=== PATIENT | male | born 1985 | race Caucasian/White ===

== ENCOUNTER 2024-07-12 10:25 | Day surgery (SDC) | payer OTHER, SELFPAY ==
[2024-07-12] VITALS (13 sets, daily range): BP systolic 111–137; BP diastolic 60–92; PULSE 78–98; RESP 16–18; TEMP 36.1–37.3; O2SAT 98–100; BMI 28.3
[2024-07-12] MEDS: 0.9% Normal Saline (1000mL) 1,000 ML 15 ML IV (10:40)
--- NOTE | 2024-07-12 10:51 | PRE.ANES_ITS ---
ASA Classification* ASA Classification ASA Classification: 2 Assessment & Plan Anesthesia* Anesthesia Assessment Anesthesia Assessment: Discussed sedation and/or anesthesia options, risks, benefits, and alternatives with patient/parents/legal guardian/POA. Questions invited. The patient/parents/legal guardian/POA seems to understand and agrees to proceed with anesthesia plan. Reviewed the physical assessment, medical history, allergy history and patient home medications list prior to surgery/procedure/anesthetic and documented any changes. Performed airway and anesthesia risk assessments. Anesthesia Type Anesthesia Type: General and Block Anesthesia Focused Assessment* Airway Assessment Mouth opens: >3 cm Mallampati Score: II Focused Labs Anesthesia Preop lab: CBC CHEMISTRY COAG Pre-Assessment Diagnosis/Proposed Procedure Planned Operative Procedure(s): (L) Arthroscopy, Knee ACL Anesthesia History Anesthesia History - umbrella repairer: Anesthesia History - umbrella repairer Hx Hospitalization No 07/02/24 15:34 Any Problems With Anesthesia No 07/02/24 15:34 Cholinesterase deficiency No 07/02/24 15:34 You/Your Family Experience No 07/02/24 15:34 fever (hyperthermia) with Relationship Recent Exposure to Contagious Disease Does patient have nerve No 07/02/24 15:34 stimulator Patient instructed to have device shut off --Does patient have Pacemaker or ICD? When Was Last Pacemaker Check QUESTION #4 FULL TEXT: You/Your Family Experience fever (hyperthermia) with Anesthesia Last Oral Intake Last Oral intake: Last Oral Intake NPO since Meds taken in AM with sips of water? Meds patient instructed to take am of surgery PONV PONV - umbrella repairer: PONV - umbrella repairer Female No 07/02/24 15:34 HX of Motion Sickness No 07/02/24 15:34 HX of N/V After Surgery No 07/02/24 15:34 Non-Smoker Yes 07/02/24 15:34 Duration of Surgery greater No 07/02/24 15:34 than 60 minutes Number of Risk Factors 1 07/02/24 15:34 PONV Score Low Risk 07/02/24 15:34 Respiratory Assessment Respiratory Assessment - umbrella repairer: Respiratory Tract Infection Hx - umbrella repairer Hx Respiratory Tract Infection No 07/02/24 15:34 STOP Sleep Apnea STOP Sleep Apnea - umbrella repairer: STOP Sleep Apnea - umbrella repairer Hx Hypertension No 07/02/24 15:34 Hx Sleep Apnea No 07/02/24 15:34 CPAP BIPAP Do you snore loudly (louder No 07/02/24 15:34 than talking or can be heard Do you often feel tired/ No 07/02/24 15:34 fatigued/ sleepy during daytime? Has anyone observed you stop No 07/02/24 15:34 breathing during sleep? STOP Results Negative 07/02/24 15:34 QUESTION #5 FULL TEXT : Do you snore loudly (louder than talking or can be heard through closed doors)? Tobacco Use History Tobacco Use History - umbrella repairer: Tobacco Use History - umbrella repairer Tobacco Use Smoking Status Former smoker 07/02/24 15:34 Hx Tobacco Use No 07/02/24 15:34 Years Smoking Packs Smoked per Day Smoking Cessation Date was Yes - quit smoking within 15 07/02/24 15:34 within the last 15 years years Hx Smoking Cessation Date Hx Smoking Cessation Counseling Hematologic Medial History Hematologic Hx - umbrella repairer: Hematologic Medical Hx - documentation coordinator Hx of Blood Transfusion No 07/02/24 15:34 Hx of Transfusion in last 3 No 07/02/24 15:34 Months Date of Last Transfusion (if within last 3 months) Ever experience any problems No 07/02/24 15:34 with transfusion(s)? Specify any problems Hx of Preganancy in last 3 N/A 07/02/24 15:34 Months Nurse Filling Out Transfusion VCHRISTIN 07/02/24 15:34 & Questions: Date: 07/02/24 07/02/24 15:34 Time: 15:35 07/02/24 15:34 Patient unable to answer at this time (ie. confused, unrespo /Reproduction History /Reproductive History - umbrella repairer: /Reproductive Hx- umbrella repairer Hx Now Gestational Age (in weeks): EDC: Hx Hx Para Hx Section SAB Active Medications Active Medications: Current Medications Generic Name Dose Route Start Last Admin Trade Name Freq PRN Reason Stop Dose Admin Cefazolin Sodium 2 gm/ N/A 20 mls @ 400 mls/hr 07/12/24 12:10 IV 07/12/24 12:12 PREOP ONE Sodium Chloride 1,000 mls @ 15 mls/hr 07/12/24 10:40 IV 07/17/24 23:59 .Q48H [facility] Protocol PFSH Medical History Former smoker Home Medications ?Medication ?Instructions ?Recorded ?Last Taken ?Type ascorbic acid (vitamin C) 500 mg 500 mg PO DAILY 07/02/24 Unknown History tablet (C-500) cholecalciferol (vitamin D3) 25 25 mcg PO DAILY 07/02/24 Unknown History mcg (1,000 unit) capsule (Vitamin D3) cyanocobalamin (vitamin B-12) 100 100 mcg PO DAILY 07/02/24 Unknown History mcg tablet (Vitamin B-12) multivitamin (Daily Multi-Vitamin 1 tab PO DAILY 07/02/24 Unknown History tablet) zinc gluconate 50 mg tablet 50 mg PO DAILY 07/02/24 Unknown History Allergy/AdvReac Type Severity Reaction Status Date / Time No Known Allergies Allergy Verified 07/02/24 15:26 Surgical History Hx of hernia repair Social History Smoking Status: Former smoker Review of Systems (Anesthesia) ROS Narrative System reviewed and no additional complaints, except as documented.
[2024-07-12] MEDS: Cefazolin 2 GM in Syringe IV (12:50)
[2024-07-12] MEDS: TRANEXAMIC ACID 1,000 MG in 0.9% Normal Saline (100mL Bag) 100 ML 440 MG IV (13:04)
[2024-07-12] MEDS: Epinephrine (1 mg/ml) 1 MG/ML VIAL (13:15)
--- NOTE | 2024-07-12 15:09 | OP.PCM_ITS ---
Operative Report (Standard) Operative Information Date of Procedure: 07/12/24 Pre-Operative Diagnosis: Left knee ACL tear, lateral meniscus tear, arthritis Post-Operative Diagnosis: Same Surgery/Procedure Performed: Left knee diagnostic video arthroscopy, partial lateral meniscectomy, ACL reconstruction using autologous quadriceps tendon framing carpenter: Yes Veterinary Medicine Scientist: Nina Bedolla Tasks completed by vector control assistant: Closing, Harvesting grafts, Implanting device and Retracting Additional orthodontist assistant?: No Type of Anesthesia: Block,Regional and General/Regional RN Documented Start/Stop Times: Operation Date: 07/12/24 12:10 Case Time Into Pre-Op 07/12/24 10:37 Anesthesia Start 07/12/24 12:48 Into Room 07/12/24 12:48 Procedure Start 07/12/24 13:16 Procedure Start Time: 12:48 Procedure Stop Time: 15:04 Select all DRAINS/GRAFTS/IMPLANTS that apply: None Estimated Blood Loss: 30 Specimen collected: No Description of surgery: Preoperative diagnosis: Left knee ACL tear lateral meniscus tear Postoperative diagnosis: Same Procedure: Left knee ACL reconstruction using autologous quadriceps tendon, lateral partial meniscectomy Surgeon: Dr. Liborio Schafer Cloth Winding Supervisor: Katya Bedolla PA-C Anesthesia: General, LMA, femoral nerve block for pain control Medications: Ancef 2 g, Tranexamic acid 1 g Indications for surgery: Patient is a 39-year-old male with a left knee injur, work related y. he has had pain and instability. Failed conservative measures. MRI consistent with intra-articular pathology, ACL tear, lateral meniscus tear. he did wish to have surgical intervention. Findings: Patient had a complete ACL tear. Pictures were taken throughout. ACL was reconstructed with autologous quadriceps tendon Arthrex tibial and femoral tight rope device. Lateral meniscus was torn near the root. Deemed nonrepairable. Partial lateral meniscectomy carried out.. Physician orthodontist assistant was utilized throughout the entire procedure. She help with patient positioning. She help with graft harvesting. She helped with graft preparation. This was done simultaneous to the surgeon proceeding with intra-articular knee surgery. Physician orthodontist assistant was crucial in helping with placement of tunnels. Graft fixation. She hepled helping with graft tensioning. Also wound closure bandage and the bandage application and bracing. Without surgical physician orthodontist assistant surgical time would have been increased and surgical outcome could have been less optimal. Surgical procedure: Patient was taken to the operating room and transferred to the OR table. Anesthesia was given. Ancef and Tranexamic acid was given IV preoperatively. Well-padded tourniquet applied to the operative upper thigh. Nonoperative lower extremity had SCD on throughout. Nonoperative lower extremity was padded over the end of the bed which was flexed down. Operative thigh placed in the padded arthroscopic leg bang. Operative knee exam and found to be unstable to Gabrielle testing, knee unstable to pivot shift testing. Operative knee was prepped padded draped in the usual orthopedic sterile fashion for the procedure. Longitudinal incision was made over the distal quadriceps after tourniquet was inflated to 250 mmHg. We carefully dissected tissue off the distal quadriceps tendon. We harvested a 10 mm graft with the [employer] pro graft harvester to a length just over 65 mm.. Physician orthodontist assistant took the tendons to the back table, prepared the graft under standard technique. Appropriate sutures placed on 1 in inappropriate sutures with a metal button placed on the other end. Graft noted to be 10 mm at 1 and an 8 mm at the other. Antibiotic soaked sponge was placed over it under tension. Physician at the same time proceeded with arthroscopic knee surgery. Lateral joint line portal taken through skin with a knife. Dull trocar took mean of the joint. Suprapatellar pouch was normal. Medial and lateral gutters normal. Intercondylar notch showed a complete ACL tear. Pictures taken. Medial and lateral compartments probed and visualized. No medial meniscus tear is identified. Oblique tear of the posterior horn lateral meniscus noted mostly in the white zone. Grade 2 and 3 cartilage damage identified medial femoral condyle, lateral femoral condyle. Pictures taken. Partial lateral meniscectomy carried out with forward biting basket and shaver to standard stable tissue. Root was noted to be intact and stable. ACL resected with the shaver. Also utilized ArthroCare wand. Pictures taken. Scope was placed posterior medial and posterior lateral joint without finding loose bodies or further pathology. Notch plasty performed with a shaver, bur. At this point femoral guide set at 105 degrees utilized. Guidepin placed through the posterior portion notch at the previous femoral attachment site. . Flip cutter utilized at a size of 10 mm to the appropriate depth. We placed a suture through that tunnel. Bony fragments removed. Tibial guide set at 55 degrees graft was noted to be in good position. Posterior aspect of the previous footprint noted. Guidepin placed appropriately through the tibia. Flip cutter used at size 8 to the appropriate depth. Suture placed through that. We did remove any soft tissue from the opening into the joint at the tibial side. Next the femoral suture was used to place our graft into the joint button flipped over the bone and appropriately tensioned down. That was verified. 20 mm of graft pulled into the femoral tunnel. We then used the sutures on the tibial tunnel to pull the graft into the tibial tunnel. With tension on the sutures on the graft knee was flexed and extended 30 times. We then used the tibial button with the appropriate sutures through it and tighten the graft into the tunnel appropriately. Both sides of the graft were then retention. Graft had nice resting tension. Knee could be fully flexed and extended as allowed by the table. Knee was stable to Gabrielle testing. No graft impingement noted. Femoral sutures cut off above the button. We tightened the internal brace suture over the button appropriately and tied it there. Final set of pictures taken. Knee drained of excess fluid. Arthroscopy portals closed with a simple suture. [place] site closed with deep 0 Vicryl, inverted 2-0 Vicryl, Steri-Strips. Portals closed with simple sutures. Tibial button site repaired with ultimately inverted 2-0 Vicryl and Steri-Strips. Sterile bandage applied. T ROM brace applied locked in extension. Patient was awoken from her anesthetic. Transferred back to there own bed. Recovery room in satisfactory condition. We will plan weightbearing as tolerated when the block is worn off. Full range of motion. Aspirin 81 mg twice a day for DVT prevention. This note was generated with [employer] dictation software. It may contain incorrect words, spelling, and punctuation that were not noted in checking the note before signing. Surgical Findings: ACL tear, lateral meniscus tear, arthritis Complications Complications: No Admit VTE Documentation VTE Present on Admission: Yes VTE Mechan Device Prophylaxis: SCD's and Thigh High SHABNAM Hose VTE Pharm Prophylaxis ordered?: Yes
--- NOTE | 2024-07-12 15:38 | PCM.POST.ANE ---
Anesthesia: Postop Eval I Current Vital Signs Temperature: 97 F Pulse Rate: 98 Blood Pressure: 131/80 Respiratory Rate: 18 Pulse Ox: 98 Oxygen Delivery Method: Room Air Assessment Airway patent: Yes Spontaneous unlabored respirations: Yes Mental status: Awake and Calm nausea: No Vomiting: No Anesthesia Complication: No Fluid Hydration Crystalloid volume administer (ml): 1,000 Total IV fluid infused: 1,000 Progress Note Anesthesia document: Postop Eval 1 completed: Yes
--- NOTE | 2024-07-12 16:42 | POSTOPAN2_ITS ---
Anesthesia Postop Eval I Sum Postop Eval Completion status Anesthesia document: Postop Eval 1 completed: Yes Anesthesia Postop Eval I Summary Anesthesia Postop Eval I Summary: Anesthesia Postop Eval I: Assessment Summary Airway patent Yes 07/12/24 15:41 ELECTRICIAN MANAGER.[email or web address] Spontaneous unlabored Yes 07/12/24 15:41 ELECTRICIAN MANAGER.[email or web address] respirations Mental status Awake,Calm 07/12/24 15:41 ELECTRICIAN MANAGER.[email or web address] nausea No 07/12/24 15:41 ELECTRICIAN MANAGER.[email or web address] Vomiting No 07/12/24 15:41 ELECTRICIAN MANAGER.[email or web address] Anesthesia Postop Eval I: Fluid Summary Crystalloid volume administer 1,000 07/12/24 15:41 ELECTRICIAN MANAGER.[email or web address] (ml) Colloids volume administered ( ml) Blood Product volume administered (ml) Total IV fluid infused 1,000 07/12/24 15:41 ELECTRICIAN MANAGER.[email or web address] Anesthesia Postop Eval I: Summary Notes Anesthesia Complication No 07/12/24 15:41 ELECTRICIAN MANAGER.[email or web address] Anesthesia Complication Comment: Post-operative progress note Anesthesia: Postop Eval II Evaluation Mental status: Awake and Calm Pain Level: 1 nausea: No Vomiting: No Complications Anesthesia Complication: No
--- NOTE | 2024-07-12 16:42 | PCM.POSTANE2 ---
Anesthesia Postop Eval I Sum Postop Eval Completion status Anesthesia document: Postop Eval 1 completed: Yes Anesthesia Postop Eval I Summary Anesthesia Postop Eval I Summary: Anesthesia Postop Eval I: Assessment Summary Airway patent Yes 07/12/24 15:41 LEARNING AND DEVELOPMENT DIRECTOR.[email or web address] Spontaneous unlabored Yes 07/12/24 15:41 LEARNING AND DEVELOPMENT DIRECTOR.[email or web address] respirations Mental status Awake,Calm 07/12/24 15:41 LEARNING AND DEVELOPMENT DIRECTOR.[email or web address] nausea No 07/12/24 15:41 LEARNING AND DEVELOPMENT DIRECTOR.SKOBY Vomiting No 07/12/24 15:41 LEARNING AND DEVELOPMENT DIRECTOR.SKOBY Anesthesia Postop Eval I: Fluid Summary Crystalloid volume administer 1,000 07/12/24 15:41 LEARNING AND DEVELOPMENT DIRECTOR.SKOBY (ml) Colloids volume administered ( ml) Blood Product volume administered (ml) Total IV fluid infused 1,000 07/12/24 15:41 LEARNING AND DEVELOPMENT DIRECTOR.[email or web address] Anesthesia Postop Eval I: Summary Notes Anesthesia Complication No 07/12/24 15:41 LEARNING AND DEVELOPMENT DIRECTOR.[email or web address] Anesthesia Complication Comment: Post-operative progress note Anesthesia: Postop Eval II Evaluation Mental status: Awake and Calm Pain Level: 1 nausea: No Vomiting: No Complications Anesthesia Complication: No
[2024-07-12] MEDS: Cefazolin 1 GM/50 ML BAG IV (17:35)
== END 2024-07-12 19:33 | disposition home or self-care (01) ==
LOC: SDC 10:29 → AC 10:30
PROVIDERS: PCP Physician Assistant; Referring Provider Physician Assistant; Visit Provider Orthopaedic Surgery
PROC: (CPT 29888; principal; 2024-07-12 11:50)
DX: S83.512A Sprain of anterior cruciate ligament of left knee, initial encounter (principal); S83.282A Other tear of lateral meniscus, current injury, left knee, initial encounter; M19.90 Unspecified osteoarthritis, unspecified site; Y04.8XXA Assault by other bodily force, initial encounter; R03.0 Elevated blood-pressure reading, without diagnosis of hypertension; E66.3 Overweight; Z68.28 Body mass index [BMI] 28.0-28.9, adult; Z87.891 Personal history of nicotine dependence
CPT/HCPCS: 29888; 29881; 64447; 01400; C1713; J2405